=== PATIENT | female | born 1955 | race Caucasian/White ===

== ENCOUNTER → 2017-01-11 | Outpatient (CLI) | payer OTHER | LOC: BMCIMAGING 10:29 | PROVIDERS: ATTEND Family Medicine | DX: Z13.820 Encounter for screening for osteoporosis (principal); M81.0 Age-related osteoporosis without current pathological fracture ==

== ENCOUNTER → 2017-01-28 | Outpatient (CLI) | payer OTHER | LOC: BMCIMAGING 08:08 | PROVIDERS: ATTEND Family Medicine | DX: R10.9 Unspecified abdominal pain (principal) ==

== ENCOUNTER → 2017-05-27 | Outpatient (CLI) | payer OTHER | LOC: FIMAGING 07:16 | PROVIDERS: ATTEND Radiology Diagnostic Radiology | DX: I83.92 Asymptomatic varicose veins of left lower extremity (principal) ==

== ENCOUNTER 2017-06-30 07:27 | Day surgery (SDC) | payer OTHER ==
[2017-06-30] MEDS ORDERED: ALTEPLASE 2 MG VIAL IVP PRN (07:38)
[2017-06-30] MEDS ORDERED: PROTAMINE SULFATE 50 MG/5 ML VIAL IVP PRN (07:38)
[2017-06-30] MEDS ORDERED: ceFAZolin 2 GM/SWFI 2 GM/20 ML SYR IVP ONE (07:38)
[2017-06-30] MEDS ORDERED: HEPARIN 10,000 UNIT/10 ML MDV IVP PRN (07:38)
[2017-06-30] MEDS ORDERED: GLUCAGON HCL 1 MG VIAL IVP PRN (07:38)
[2017-06-30] MEDS ORDERED: ONDANSETRON 4 MG/2 ML VIAL IVP ONE (07:38)
[2017-06-30] MEDS ORDERED: NS 1,000 ML IV ONE (07:38)
[2017-06-30] MEDS ORDERED: fentaNYL 100 MCG/2 ML INJ IVP PRN (07:40)
[2017-06-30] MEDS ORDERED: NALOXONE HCL 0.4 MG/ML INJ IVP PRN (07:40)
[2017-06-30] MEDS ORDERED: MIDAZOLAM 2 MG/2 ML VIAL IVP PRN (07:40)
[2017-06-30] MEDS ORDERED: MEPERIDINE 25 MG/ML SYR IVP PRN (07:40)
[2017-06-30] MEDS ORDERED: FLUMAZENIL 0.5 MG/5 ML MDV IVP PRN (07:40)
[2017-06-30 08:09] VITALS: PULSE 65; RESP 14; TEMP 97.8
--- NOTE | 2017-06-30 08:52 | PDGENHP ---
History & Physical Chief Complaint: LLE VARAICOSE VEINS History of Present Illness: Previous treatment not worked. Repeat treatment needed Pertinent Past, Social, Family History: N/A Relevant Physical Exam: LLE varicose veins Cardiorespiratory Assessment: clear lungs; RRR
--- NOTE | 2017-06-30 08:54 | PDPROPOC ---
Sedation Plan of Care Sedation Plan of Care: vital signs stable, mental status noted, patient educated of risks, benefits, alternatives, patient can tolerate sedation ASA Classification: ASA 1 Planned drugs: fentanyl, midazolam Mallampati Score: Class 1 Mallampati Reference Image: Patient passed 3-3-2 rule?: Yes
[2017-06-30] MEDS ORDERED: LIDO/EPI 1% **for epidural** 30 ML SDV ONE ×2 (09:22→09:33)
[2017-06-30] MEDS ORDERED: SODIUM TETRADECYL SULFATE 3% 2 ML VIAL IV ONE (09:22)
[2017-06-30] MEDS ORDERED: IBUPROFEN 200 MG TAB PO ONE (11:08)
[2017-06-30] MEDS ORDERED: HYDROCODONE/APAP 5/325 TAB PO PRN (11:08)
[2017-06-30] MEDS ORDERED: ONDANSETRON 4 MG/2 ML VIAL IVP PRN (11:08)
[2017-06-30] MEDS ORDERED: ONDANSETRON DISINTEGRATING 4 MG TAB PO PRN (11:08)
--- NOTE | 2017-06-30 11:15 | PDRADPN ---
Radiology Procedure Note Date of Procedure: 06/30/17 Radiologist: Yvonne Molina Anesthesia: IV Sedation (fentanyl and versed) Pre-op Diagnosis: LLE varicosities Post-op Diagnosis: same Indication: worsening symptoms Procedure: LLE laser, phlebectomy, schlerotherapy Finding(s): please see dictated report. <10 stab phlebectomy done. GSV laser ablated. Inf/Abcess present in the surg proc area at time of surgery?: No EBL: Minimal Complications: none Specimen(s): veins
[2017-06-30 13:21] VITALS: BP 112/50; O2SAT 99
== END 2017-06-30 14:56 | disposition home or self-care (01) ==
LOC: FIMAGING 07:27
PROVIDERS: ATTEND Radiology Diagnostic Radiology
PROC: 065Q3ZZ Destruction of Left Saphenous Vein, Percutaneous Approach (ICD-10-PCS; 2017-06-30)
PROC: 06DQ3ZZ Extraction of Left Saphenous Vein, Percutaneous Approach (ICD-10-PCS; 2017-06-30)
PROC: 3E033TZ Introduction of Destructive Agent into Peripheral Vein, Percutaneous Approach (ICD-10-PCS; principal; 2017-06-30 11:25)
DX: I83.92 Asymptomatic varicose veins of left lower extremity (principal)
CPT/HCPCS: J0690; J2250; J3010

== ENCOUNTER → 2017-07-16 | Outpatient (CLI) | payer OTHER | LOC: FIMAGING 10:43 | PROVIDERS: ATTEND Radiology Diagnostic Radiology | DX: I83.92 Asymptomatic varicose veins of left lower extremity (principal) ==

== ENCOUNTER 2018-07-06 13:52 | Inpatient (IN) | payer OTHER, MEDICARE ==
[2018-07-06 14:35] LABS: PLATELET COUNT 261 10^3/uL (150-400)
[2018-07-06 14:47] LABS: INR 1.11 (0.83-1.16); PROTIME(PATIENT) 14.5 SEC (12.0-15.0)
[2018-07-06] MEDS ORDERED: ASPIRIN 81 MG CHEWABLE TAB PO ONE (15:01)
[2018-07-06] MEDS ORDERED: ASPIRIN 81 MG CHEWABLE TAB ONE (15:01)
[2018-07-06] MEDS ORDERED: NITROGLYCERIN 0.4 MG BTL SL PRN (15:01)
[2018-07-06] MEDS ORDERED: NITROGLYCERIN 0.4 MG BTL SL ONE (15:02)
[2018-07-06] MEDS ORDERED: LORazepam 2 MG/ML INJ ONE (15:15)
[2018-07-06] MEDS ORDERED: LORazepam 2 MG/ML INJ IVP ONE (15:18)
[2018-07-06] MEDS ORDERED: NS 1,000 ML IV ONE (15:18)
--- NOTE | 2018-07-06 15:23 | EDPHY ---
H & P Time Seen by Provider: 07/06/18 15:04 HPI/ROS: HPI Chest pain. 63 year old female by private vehicle with and daughter. This patient underwent a tonsillectomy yesterday. She was discharged at approximately 12 noon. Since this time she has had a sensation of a low level chest tightness and aching. She describes this as being in her mid chest. She does not have a history of coronary artery disease. She had an EKG done prior to her discharge after her surgery. She was told this was normal. She reports the pain has persisted at a low level despite taking Percocet which she has been using for her post tonsillectomy pain. She reports the pain was worse this morning and that is what prompted her to come to the emergency department. Other than her age she does not have any known cardiac risk factors. ROS: Constitutional: No fever, no chills. No weakness. Eyes: No discharge. No changes in vision. ENT: No sore throat. No nasal congestion or rhinorrhea. Respiratory: No cough. No shortness of breath. Cardiac: No chest pain, no palpitations. Gastrointestinal: No abdominal pain, no vomiting, no diarrhea. Genitourinary: No hematuria. No dysuria or increased frequency with urination. Musculoskeletal: No back pain. No neck pain. No myalgias or arthralgias. Skin: No rashes. Neurological: No headache. No focal weakness or altered sensation. Past medical history: Takes Fosamax for low bone density. Hypothyroid. Social history: Here with her and daughter. Physical Exam: General Appearance: Alert, mildly anxious but not in distress. This patient is responding to questions appropriately and in full sentences. This patient appears well-hydrated and well-nourished. Eyes: Pupils equal and round no pallor or injection. No lid edema, erythema or injection. Respiratory: There are no retractions, lungs are clear to auscultation with good air movement bilaterally. Cardiovascular: Regular rate and rhythm. No murmur. Gastrointestinal: Abdomen is soft and nontender, no masses, bowel sounds normal. No focal tenderness at McBurney's point. No Godfrey sign. Neurological: Motor sensory function is grossly intact. Cranial nerves are normal. Gait is normal. Skin: Warm and dry, no rashes. Musculoskeletal: Neck is supple and nontender. Extremities are symmetrical. All joints range without pain or impingement. Psychiatric: No agitation. No depression. Database: EKG: EKG time is 2:08 p.m.; EKG shows a narrow complex normal sinus rhythm with a ventricular rate of 63. Borderline left axis deviation noted. Slightly biphasic T-waves in V3 through V6. This does not represent a classic Wellens syndrome pattern. The AR, QRS, QT intervals are within normal limits. There are no ST-T wave changes indicative of ischemic or injury pattern. No evidence of right heart strain. Interpreted by me. Imaging: Chest x-ray AP portable; the cardiac mediastinal silhouette is unremarkable. No evidence of infiltrate or pneumothorax. No acute cardiopulmonary disease process noted. Interpreted by me. Procedures: Emergency department course: Triage vitals reviewed. She is mildly hypertensive. Vital signs are otherwise normal. She is afebrile. IV was placed. She was placed on a cardiac catheterization technologist. She was given 324 mg of chewed aspirin. EKG obtained and reviewed by myself. 3:30 p.m., the patient was re-evaluated. At this time she was complaining of mild chest pressure and aching, mid substernal. She was given 0.4 mg of sublingual nitroglycerin. 3:40 p.m., called back to the patient's bedside, patient had an apparent syncopal versus seizure event. I witnessed seizure-like activity. This lasted for about 30 sec to a minute. She then came out of it. She was mildly postictal but cleared quickly. Repeat blood pressure at this time was 85/50. She was started on IV normal saline of 500 cc bolus. 3:55 p.m., patient re-evaluated, feeling much better. No chest pain at this time. Mentation is normal. Repeat neurologic Assessment is nonfocal. She is responding to questions appropriately and in full sentences. Denies headache. 4:30 p.m., spoke with on-call hospitalist Dr. Oliver House. Case discussed in detail with her. She will see the patient in the emergency department shortly. 4:50 p.m., patient re-evaluated, resting comfortably with family in room. The patient has been seen by Dr. Oliver House. She is awaiting admission. She denies any chest pain at this time. Repeat neurologic assessment is nonfocal. Blood pressure is currently 105/49. Pulse oximetry 98% on room air. hall monitor shows a narrow complex sinus rhythm with ventricular rate of 62. Her remaining emergency department course under my care has been uneventful. She was admitted to telemetry under the care of the hospitalist service in stable condition. Differential Diagnosis: The differential diagnosis on this patient includes but is not limited to acute coronary syndrome/myocardial infarction, new onset seizure verses syncopal event. CVA, pulmonary embolism, myocarditis, pericarditis, hyponatremia, hypoglycemia unlikely. This represents a partial list of diagnoses considered. These considerations are based on history, physical exam, past history, reassessment and diagnostic testing. Smoking Status: Never smoked Constitutional: Initial Vital Signs Temperature (C) 36.6 C 07/06/18 13:55 Heart Rate 62 07/06/18 13:55 Respiratory Rate 18 07/06/18 13:55 Blood Pressure 133/58 H 07/06/18 13:55 O2 Sat (%) 100 07/06/18 13:55 O2 Delivery Mode Non-Rebreather Mask Allergies/Adverse Reactions: No Known Allergies Allergy (Unverified 07/06/18 13:54) Home Medications: Medication Instructions Recorded ALPRAZolam [Xanax 0.5 MG (*)] 0.5 mg PO TID PRN 07/06/18 Alendronate Sodium [Fosamax 70 MG 70 mg PO WISE@0700 07/06/18 (*)] Amoxicillin [Amoxicillin Susp] 500 mg PO TID 07/06/18 Hydrocodone/Acetaminophen 15 ml PO Q4H PRN 07/06/18 [Hydrocodon-Acetamin 7.5-325/15] Levothyroxine [Synthroid 75 mcg 75 mcg PO DAILY06 07/06/18 (*)] Medical Decision Making - Data Points Laboratory Results: Laboratory Results 07/06/18 14:29 07/06/18 14:29 Medications Given: Hydrocodone Bitart/Acetaminophen (Hycet Oral Liquid) 15 ml PO Q4H PRN PRN Reason: Pain, Moderate Stop: 07/16/18 17:03 Last Admin: 07/07/18 15:57 Dose: 15 ml Alprazolam (Xanax) 0.5 mg PO TID PRN PRN Reason: Anxiety Stop: 01/02/19 17:03 Last Admin: 07/07/18 01:51 Dose: 0.25 mg Amoxicillin (Amoxil 250mg/5ml) 500 mg PO TID JESSIE PRN Reason: Protocol Stop: 07/08/18 16:59 Last Admin: 07/07/18 15:56 Dose: 10 ml Atorvastatin Calcium (Lipitor) 40 mg PO DAILY JESSIE Stop: 01/03/19 11:44 Last Admin: 07/07/18 12:10 Dose: 40 mg Levothyroxine Sodium (Synthroid) 75 mcg PO DAILY06 JESSIE Stop: 01/03/19 05:59 Last Admin: 07/07/18 06:23 Dose: 75 mcg Metoprolol Tartrate (Lopressor) 12.5 mg PO BID [facility] Stop: 01/03/19 11:44 Last Admin: 07/07/18 12:10 Dose: 12.5 mg Nitroglycerin (Nitrostat) 0.4 mg SL Q5M PRN PRN Reason: Chest Pain Last Admin: 07/06/18 15:10 Dose: 0.4 mg Discontinued Medications Aspirin (Aspirin) 324 mg PO EDNOW ONE Stop: 07/06/18 15:02 Last Admin: 07/06/18 15:05 Dose: 324 mg Aspirin Buffered (Aspirin Ec) 325 mg PO ONCALL ONE Stop: 07/07/18 10:00 Last Admin: 07/07/18 11:47 Dose: Not Given Diazepam (Valium) 5 mg PO ONCALL ONE Stop: 07/07/18 10:00 Last Admin: 07/07/18 11:47 Dose: Not Given Diphenhydramine HCl (Benadryl) 25 mg PO ONCALL ONE Stop: 07/07/18 10:00 Last Admin: 07/07/18 11:47 Dose: Not Given Famotidine (Pepcid) 20 mg PO ONCALL ONE Stop: 07/07/18 10:00 Last Admin: 07/07/18 11:47 Dose: Not Given Sodium Chloride (Ns) 1,000 mls @ 3,000 mls/hr IV ONCE ONE Stop: 07/06/18 15:37 Last Admin: 07/06/18 15:19 Dose: 1,000 mls Sodium Chloride (Ns) 1,000 mls @ 75 mls/hr IV CONT JESSIE Stop: 01/02/19 17:14 Last Admin: 07/07/18 06:23 Dose: 1,000 mls Lorazepam (Ativan Injection) 2 mg IVP EDNOW ONE Stop: 07/06/18 15:19 Last Admin: 07/06/18 15:17 Dose: 2 mg Lorazepam (Ativan Injection) 0.5 - 1 mg IVP Q8HRS PRN PRN Reason: Anxiety, Unable to Take PO Stop: 01/02/19 17:01 Last Admin: 07/07/18 06:23 Dose: 1 mg Point of Care Test Results: Chemistry 07/06/18 14:29 POC Troponin I 0.27 ng/mL H ng/mL (0.00-0.08) Departure - Departure Disposition: [facility] Inpatient Acute Clinical Impression: Chest pain, Syncope, Possible seizure
[2018-07-06] MEDS ORDERED: oxyCODONE IR 5 MG TAB PO PRN (17:02)
[2018-07-06] MEDS ORDERED: ONDANSETRON 4 MG/2 ML VIAL IVP PRN (17:02)
[2018-07-06] MEDS ORDERED: ACETAMINOPHEN 325 MG TAB PO PRN (17:02)
[2018-07-06] MEDS ORDERED: HYDROmorphONE/DILAUDID 1 MG/ML INJ IVP PRN (17:02)
[2018-07-06] MEDS ORDERED: LORazepam 0.5 MG TAB PO PRN (17:02)
[2018-07-06] MEDS ORDERED: ONDANSETRON DISINTEGRATING 4 MG TAB PO PRN (17:02)
[2018-07-06] MEDS ORDERED: HYDROCODONE/APAP 5/325 TAB PO PRN (17:02)
[2018-07-06] MEDS ORDERED: PROMETHAZINE HCL 25 MG/ML INJ IVP PRN (17:02)
[2018-07-06] MEDS ORDERED: ALPRAZolam 1 MG TAB PO PRN (17:04)
[2018-07-06] MEDS ORDERED: NS 1,000 ML IV SCH (17:15)
[2018-07-06] MEDS ORDERED: ACETAMINOPHEN 650 MG/20.3 ML UDCUP PO PRN (18:30)
[2018-07-06] MEDS: AMOXICILLIN SUSP 250 MG/5 ML BTL PO SCH ×2 (18:40→22:20)
--- NOTE | 2018-07-06 18:46 | PDGENHP ---
History and Physical - Chief Complaint chest pain - History of Present Illness Patient is a 63 yo F with minimal PMH that presents with c/o chest pain present since she underwent tonsillectomy yesterday. She notes she woke up from surgery with substernal, persistent chest pain. They performed an ecg according to her report which was reassuring and so she was sent home. She notes the pain remained persistent, substernal without radiation and without exacerbating or alleviating factors other than pain meds. The pain persisted overnight until she decided finally to come to the ER today and was given a NTG. After receiving SL NTG in the ER she did have a syncopal episode where she was noted to be twitching, staring off to one direction briefly. Family was present at bedside and notes that she did not have seizure like activity but was staring one way and had some chills but they note she has chills all of the time. She did not bite her tongue or lose continence of her bowel or bladder. When she woke up she was a bit tired but otherwise felt normal. She notes she has a hx of fainting and this was very much like her usual fainting episodes. Since waking up from fainting the chest pain has not returned. She also notes that she has a lot of stress currently in her life, her brother 4 weeks ago and she has been very upset. She does not want to stay in the hospital or undergo any testing here if it can wait until after discharge. History Information - Allergies/Home Medication List Allergies/Adverse Reactions: No Known Allergies Allergy (Unverified 07/06/18 13:54) Home Medications: ALPRAZolam [Xanax 0.5 MG (*)] 0.5 mg PO TID PRN 07/06/18 [Last Taken 07/05/18] Alendronate Sodium [Fosamax 70 MG (*)] 70 mg PO WISE@0700 07/06/18 [Last Taken 12/15] Amoxicillin [Amoxicillin Susp] 500 mg PO TID 07/06/18 [Last Taken 07/06/18 12:00 ] Hydrocodone/Acetaminophen [Hydrocodon-Acetamin 7.5-325/15] 15 ml PO Q4H PRN 03/16 [Last Taken 07/06/18 09:00] Levothyroxine [Synthroid 75 mcg (*)] 75 mcg PO DAILY06 07/06/18 [Last Taken 03/16 07:30] I have personally reviewed and updated: family history, medical history, social history, surgical history - Past Medical History Additional medical history: osteopenia. hypothyroid. MVP - Surgical History Additional surgical history: tonsillectomy yesterday. breast biopsy. varicose vein ablation - Family History Additional family history: Mom at age 86 of aneurysm. Father young of unknown cause - Social History Smoking Status: Never smoked Alcohol Use: Rarely Drug Use: None Additional social history: Review of Systems Review of Systems: ROS: 10pt was reviewed & negative except for what was stated in HPI & below Physical Exam Physical Exam: Temp Pulse Resp BP Pulse Ox 37.0 C 65 17 124/52 H 99 07/06/18 18:01 07/06/18 18:01 07/06/18 18:01 07/06/18 18:01 07/06/18 18:01 O2 (L/minute) 2 Constitutional: no apparent distress, appears nourished Eyes: PERRL, anicteric sclera Ears, Nose, Mouth, Throat: moist mucous membranes, hearing normal Cardiovascular: regular rate and rhythym, no murmur, rub, or gallop, No edema Respiratory: no respiratory distress, no rales or rhonchi, clear to auscultation Gastrointestinal: normoactive bowel sounds, soft, non-tender abdomen Genitourinary: no bladder tenderness Skin: warm, normal color Musculoskeletal: full muscle strength, no muscle tenderness Neurologic: AAOx3 Psychiatric: interacting appropriately, not encephalopathic, anxious Lab Data & Imaging Review 07/06/18 14:29 07/06/18 14:29 WBC 13.58 10^3/uL (3.80-9.50) H 07/06/18 14:29 RBC 4.73 10^6/uL (4.18-5.33) 07/06/18 14:29 Hgb 14.7 g/dL (12.6-16.3) 07/06/18 14:29 Hct 42.1 % (38.0-47.0) 07/06/18 14:29 MCV 89.0 fL (81.5-99.8) 07/06/18 14:29 MCH 31.1 pg (27.9-34.1) 07/06/18 14:29 MCHC 34.9 g/dL (32.4-36.7) 07/06/18 14:29 RDW 12.8 % (11.5-15.2) 07/06/18 14:29 Plt Count 261 10^3/uL (150-400) 07/06/18 14:29 MPV 9.0 fL (8.7-11.7) 07/06/18 14:29 Neut % (Auto) 70.4 % (39.3-74.2) 07/06/18 14:29 Lymph % (Auto) 20.5 % (15.0-45.0) 07/06/18 14:29 [place] % (Auto) 7.8 % (4.5-13.0) 07/06/18 14:29 Eos % (Auto) 0.5 % (0.6-7.6) L 07/06/18 14:29 Baso % (Auto) 0.3 % (0.3-1.7) 07/06/18 14:29 Nucleat RBC Rel Count 0.0 % (0.0-0.2) 07/06/18 14:29 Absolute Neuts (auto) 9.56 10^3/uL (1.70-6.50) H 07/06/18 14:29 Absolute Lymphs (auto) 2.78 10^3/uL (1.00-3.00) 07/06/18 14:29 Absolute Monos (auto) 1.06 10^3/uL (0.30-0.80) H 07/06/18 14:29 Absolute Eos (auto) 0.07 10^3/uL (0.03-0.40) 07/06/18 14:29 Absolute Basos (auto) 0.04 10^3/uL (0.02-0.10) 07/06/18 14:29 Absolute Nucleated RBC 0.00 10^3/uL (0-0.01) 07/06/18 14:29 Immature Gran % 0.5 % (0.0-1.1) 07/06/18 14:29 Immature Gran # 0.07 10^3/uL (0.00-0.10) 07/06/18 14:29 PT 14.5 SEC (12.0-15.0) 07/06/18 14:29 INR 1.11 (0.83-1.16) 07/06/18 14:29 APTT 25.2 SEC (23.0-38.0) 07/06/18 14:29 D-Dimer < 0.27 ug/mLFEU (0.00-0.50) 07/06/18 14:29 Sodium 138 mEq/L (135-145) 07/06/18 14:29 Potassium 3.4 mEq/L (3.3-5.0) 07/06/18 14:29 Chloride 106 mEq/L (97-110) 07/06/18 14: Carbon Dioxide 22 mEq/l (22-31) 07/06/18 14: Anion Gap 10 mEq/L (6-14) 07/06/18 14:29 BUN 10 mg/dL (7-23) 07/06/18 14:29 Creatinine 0.8 mg/dL (0.6-1.0) 07/06/18 14: Estimated GFR > 60 07/06/18 14:29 Glucose 103 mg/dL (70-100) H 07/06/18 14: Calcium 10.4 mg/dL (8.5-10.4) 07/06/18 14:29 POC Troponin I 0.27 ng/mL (0.00-0.08) H 07/06/18 14:29 Troponin I 0.244 ng/mL (0.000-0.034) H 07/06/18 14:29 Visualized and Interpreted Chest x-ray results: Yes Chest X-Ray results: no infiltrate Visualized and Interpreted EKG results: Yes EKG Interpretation: Positive for: normal sinsus rhythm Assessment & Plan Assessment: Chest pain (Acute) 63 yo F with PMH of hypothyroidism and MVP presenting with chest pain and syncope post NTG # chest pain: with a heart score of 3 and atypical story without significant risk factors but an indeterminate initial troponin. D dimer negative and not hypoxic making PE unlikely. Will trend trops, will monitor serial ecg and watch on tele. Patient is asking that if the remainder of her workup be unremarkable that further testing be deferred until later in the week given her recent surgery. Will ask cardiology to consult in am, if trops trend down, OP stress test would be reasonable. # syncope: occurring after receiving nitro in the ER and along with BP dropping to systolic of 80, suspect an orthostatic or vagal type syncope event in a patient with hx of syncope. She does note a hx of mitral valve prolapse so will get echo in am. # recent tonsillectomy: with some continued pain being managed with oral opiates # hypothyroid: continue lt4 # osteopenia: on fosamax # anxiety: with continuous benzo use and dependence, will continue home meds # observation status Patient new to my care. Old records reviewed and summarized as above. Care plan reviewed with ER doctor as above. Further hx obtained from family present at bedside.
[2018-07-06] MEDS: LORazepam 2 MG/ML INJ IVP PRN (22:20)
[2018-07-07] MEDS: HYDROCOD/APAP 7.5/325 IN 15ML UDCUP PO PRN ×5 (01:38→21:24)
[2018-07-07] MEDS: LEVOTHYROXINE 75 MCG TAB PO SCH (06:23)
[2018-07-07] MEDS: LORazepam 2 MG/ML INJ IVP PRN (06:23)
[2018-07-07] MEDS: AMOXICILLIN SUSP 250 MG/5 ML BTL PO SCH ×3 (08:21→21:24)
[2018-07-07] MEDS ORDERED: FAMOTIDINE 20 MG TAB PO ONE (09:59)
[2018-07-07] MEDS ORDERED: DIAZEPAM 5 MG TAB PO ONE (09:59)
[2018-07-07] MEDS ORDERED: ASPIRIN EC 325 MG TAB PO ONE (09:59)
[2018-07-07] MEDS ORDERED: diphenhydrAMINE 25 MG CAP PO ONE (09:59)
[2018-07-07] MEDS: METOPROLOL TARTRATE 25 MG TAB PO SCH ×2 (12:10→21:26)
[2018-07-07] MEDS: ATORVASTATIN CALCIUM 40 MG TAB PO SCH (12:10)
--- NOTE | 2018-07-07 12:21 | ASMTCMCOM ---
CM Note CM Note Notes: Pts case discussed in tx rounds. Pt is a 63 y/o female admitted for chest pain. Pt underwent a tonsillectomy yesterday. Pt is scheduled for a cath today. Pt will most likely d/c independent when medically stable. No therapies ordered at this time. CM available for changes. Plan: Independent Date Signed: 07/07/2018 12:20 PM Electronically Signed By:KHANG Gómez
--- NOTE | 2018-07-07 12:57 | GCON ---
CARDIOLOGY CONSULTATION REFERRING PHYSICIAN: Jeimy Bruno MD SUPERVISING TRAVERSE ROD ASSEMBLER: Dr. Hart INDICATION FOR CARDIOLOGY CONSULTATION: Chest pressure, elevated troponins. HISTORY OF PRESENT ILLNESS: The patient is a 63-year-old female who reports no significant cardiac history. She has recently underwent tonsillectomy on Wednesday of this week performed by Dr. Martínez. Patient reporting post-procedure , she did have some mild midsternal chest pressure, stating that she did mention this to the PACU staff, an electrocardiogram was done at that time, and she was told everything was "fine." At the time of her discharge, she had no further episodes of chest pain. She reports once coming home, she did have bouts of chest pressure, coming on spontaneously, reporting no significant exertion. Lasting up to a few hours. She reports no associated symptoms of shortness of breath, nausea, or diaphoresis. Did not feel that the symptoms were positional. After dealing with this a day, yesterday she did call Dr. Martínez's office who told her to come to the emergency department for further evaluation. Upon arrival, she continued to have persistent chest pressure, she was evaluated by the emergency department. Electrocardiogram was initially done showing sinus rhythm, RSR prime noted in V2, incomplete right bundle branch block, borderline left axis deviation with early R-wave progression in anterior leads. No significant ST or T-wave abnormalities. Laboratory studies drawn showing a mild troponin level of 0.024. Her D-dimer was less than 0.27. She was given a sublingual nitroglycerin; soon afterwards, she became very lightheaded, reporting as if she had tunnel vision, and then passed out. Per her , who was at her bedside during this experience, she was noted to have some mild twitching, but patient was negative for incontinence of bowel or bladder, and reports no biting of the tongue. Help was summoned, and she was laid done immediately, and regained consciousness fairly quickly. She noted at that time to have a systolic blood pressure of less than 80. Patient does report after nitroglycerin, she has had no further episodes of chest pressure. She was admitted to the PCU for overnight observation, in which she reports she has been pain-free. They have been trending her troponins, and this morning's troponin was 0.178. Patient reports of recent tonsillectomy due to ongoing cyst, but reports she has had no recent fevers, chills, or night sweats. She reports no bleeding issues post-tonsillectomy. Denies any history of orthopnea, PND, edema, lightheadedness, near-syncope. She does report previous syncopal event with blood drawn multiple years ago, which she reported was vasovagal. She reports no fevers, chills, or night sweats. Denies of any symptoms suggesting of infection. She reported prior to her surgery last week, she was exercising on a routine basis without symptoms. She has significant cardiac risk factors of age. PAST MEDICAL HISTORY: Includes osteopenia, hypothyroidism, and she was noted to have mitral valve prolapse for greater than 20 years. She is not followed by Cardiology regularly. SURGICAL HISTORY,: Tonsillectomy done on Wednesday, breast biopsy, varicose vein ablation in the left leg. FAMILY HISTORY: Patient reports mom of a femoral aneurysm at age 86, father young of unknown causes, but she denies of any significant family history of coronary artery disease. SOCIAL HISTORY: She is a retired nurse. She reports she has never smoked. She is . She occasionally uses alcohol. Denies of any illicit drug use. ALLERGIES: She has no known drug allergies. HOME MEDICATIONS: Include Xanax 0.5 mg p.o. t.i.d. p.r.n., amoxicillin 500 mg p.o. t.i.d., hydrocodone/acetaminophen 7.5/325 mg 15 mL p.o. q.4 hours p.r.n., Synthroid 75 mcg p.o. daily, Fosamax 70 mg p.o. every Wednesday. REVIEW OF SYSTEMS: A 10-point review of systems done on this patient all negative, except as mentioned above. PHYSICAL EXAMINATION: GENERAL APPEARANCE: Thin, well-groomed female. She is alert and oriented to person, place, time, and situation. She appears to be in no acute distress at this time. VITAL SIGNS: Current: Blood pressure of 131/56, heart rate of 65 sinus rhythm on the monitor, respirations 14, saturating 95% on room air, temperature 36.6 degrees Celsius. HEENT: Head is normocephalic. Lips and tongue are pink and moist with no signs of cyanosis. Conjunctivae pink. NECK: Trachea is midline. +2 carotid pulses bilateral. No auscultated bruits. No jugular vein distention. RESPIRATORY: Lungs are clear to auscultation. No rhonchi, rales, or wheezes. No accessory muscle use. No intercostal muscle retraction noted. CARDIAC: Regular rate, regular rhythm, S1, S2. No S3, S4, gallops, rubs, or murmurs noted. ABDOMEN: Soft, nontender. Bowel sounds x4 quadrants. No organomegaly. No palpable masses. SKIN: [place], warm, dry. No cyanosis. No clubbing. No peripheral edema. VASCULAR: +2 carotids bilateral, +2 radials bilateral, +1 dorsal pedal and posterior tibial pulses bilateral. LABORATORY STUDIES: Drawn on admission showed WBC of 13.58, hemoglobin 14.7, hematocrit of 42.1, platelet count 261. INR 1.1. D-dimer less than 0.27. Sodium 138, potassium 3.4, chloride 106, CO2 22, BUN 10, creatinine 0.8, glucose 103, calcium 10.4. Noted on admission troponin of 0.027, done at 2:30 afternoon troponin of 0.024, done at 3:30 this morning troponin level of 0.178. DIAGNOSTIC DATA: Electrocardiogram in the ER as mentioned above. Chest x-ray showing no acute cardiopulmonary process. Preliminary of echocardiogram showing mild mitral valve prolapse. No LV wall motion abnormality. EF within normal limits. ASSESSMENT/PLAN: 1. Chest pressure: Patient reporting ongoing chest pressure. Since undergoing surgery on Wednesday. Noted to have mildly elevated troponin peaking at 0.27. Electrocardiogram showed no acute ischemia at this time. Echocardiogram preliminary showing no wall motion abnormality on left ventricle. Both Dr. Hart and I have discussed potentially taking patient to the cardiac catheterization lab with her ENT surgeon, Dr. Martínez who feels that the patient is at extreme risk on antiplatelet therapy of bleeding, which he may not be able to control, considering even potential life-threatening. At this time due to her being asymptomatic, we have opted for medical management, in which we will place her on beta-blockers of metoprolol tartrate, will start her on atorvastatin. We will hold off on starting her on aspirin therapy per Dr. Martínez's request of no anti-platelet therapy. We will plan on watching her for 1 more night in the hospital, trending her troponins. If everything continues to work down, then we will potentially discharge her tomorrow, with plans of having her coming in after 10 days in which her bleeding risks will be significantly reduced per Dr. Martínez, with consideration of a heart catheterization to be done at that time. If her symptoms change, we could always transition her to an emergent catheterization. 2. Syncopal event: The patient reporting syncopal event after nitroglycerin, with low systolic blood pressures, patient with history of vasovagal syncope in the past after needlestick. More than likely, her syncopal event was caused by dehydration from her recent surgery and vasodilation from the nitroglycerin. We will continue to monitor. Plan on checking orthostatic blood pressures. Thank you for this consultation. We will be glad to follow along with you. /[id number]/MODL MTDD
--- NOTE | 2018-07-07 15:14 | HOSPPROG ---
Hospitalist Progress Note Assessment/Plan: * Non-STEMI -now CP free -high risk cath given recent tonsillectomy -plan for med mgmt short term - bring back for cardiac cath 10 days -add metoprolol and statin -no anti-platelet per ENT request * s/p tonsillectomy -high risk for bleed in immediate post-op period -per ENT delay cath and blood thinners if possible -soft diet * Syncope due to NTG induced hypotension -no recurrence - continue to monitor BP * Anxiety -Xanax prn per home dosing Subjective: No more CP Objective: Vital Signs Temp Pulse Resp BP Pulse Ox 36.7 C 62 14 126/62 H 96 07/07/18 11:22 07/07/18 12:49 07/07/18 11:22 07/07/18 12:49 07/07/18 11:22 07/06/18 07/07/18 07/08/18 05:59 05:59 05:59 Intake Total 1400 910 Output Total 200 Balance 1200 910 PT 14.5 SEC (12.0-15.0) 07/06/18 14:29 INR 1.11 (0.83-1.16) 07/06/18 14:29 EKG viewed, my personal interpretation is - NSR CXR - negative case discussed at length with cardiology Dr. Hart and Kenny Sebastian Laboratory Tests 07/06/18 07/06/18 07/07/18 14:29 14:29 03:03 D-Dimer < 0.27 Troponin I 0.244 H 0.178 H - Physical Exam Constitutional: no apparent distress, appears nourished, not in pain Cardiovascular: regular rate and rhythym, no murmur, rub, or gallop Respiratory: no respiratory distress, no rales or rhonchi, clear to auscultation Gastrointestinal: normoactive bowel sounds, soft, non-tender abdomen, no palpable masses Skin: no rashes or abrasions, no fluctuance, no induration Neurologic: AAOx3, sensation intact bilaterally Psychiatric: interacting appropriately, not anxious, not encephalopathic, thought process linear ICD10 Worksheet Patient Problems: Problems Problem Status Onset Chest pain Acute New onset seizure Acute
--- NOTE | 2018-07-07 16:09 | ECHO ---
[email or web address] [address] [address] Main: [phone] Fax: Transthoracic Echocardiogram Name: GUSTABO RAM MR#: [id number] Study Date: 07/07/2018 Study Time: 09:11 AM Date of : 1955 Age: 63 year(s) Height: 162.6 cm (64 in.) Weight: 49.9 kg (110 lb.) BSA: 1.52 m2 Gender: Female Examination: Echo Indication: Cardiac: syncope, hx of mitral valve prolapse Image Quality: Adequate Contrast: Requested by: Oliver House BP: 131 mmHg/56 mmHg Heart Rate: Rhythm: Indication: Cardiac: syncope, hx of mitral valve prolapse Procedure Staff Quality Control Analyst: Bette Leblanc RD Reading Physician: Jose L Pettit MD Requesting Provider: Conclusions: Normal size left ventricle. Normal global systolic LV function. Mild mitral valve regurgitation is present. There is mild mitral valve prolapse. The aortic valve is tri-leaflet. Mild aortic valve regurgitation is present. No aortic valve stenosis is present. Right ventricular systolic pressure measures 37mmHg. Normal size ascending aorta measuring 2.9 cm. Trivial pericardial effusion. No old studies for comparison. Measurements: Chambers Valvular Assessment AV/MV Valvular Assessment TV/PV Normal Normal Normal Name Value Range Name Value Range Name Value Range Ao Yanique (2D): 2.8 cm (1.4 cm-2.6 AV Vmax: 1.37 m/s (1 m/s-1.7 TR Vmax: 2.85 mm/s ( - ) cm) m/s) TR PGmax: 32 mmHg ( - ) IVSd (2D): 0.7 cm (0.6 cm-1.1 AV maxP mmHg ( - ) syst. PAP: 37 mmHg ( - ) cm) AV meanP mmHg ( - ) PV Vmax: 0.65 m/s (0.6 m/s-0.9 LVDd (2D): 4.6 cm (3.9 cm-5.3 LIA (VTI): 2.0 cm ( - ) m/s) cm) MV E Vmax: 0.78 m/s ( - ) PV PGmax: 2 mmHg ( - ) LVDs (2D): 2.9 cm (2.1 cm-4 MV A Vmax: 0.54 m/s ( - ) cm) MV E/A: 1.44 ( - ) LVPWd (2D): 0.8 cm ( - ) MV PHT: 0.083 s ( - ) LVOTd 1.9 cm 1.9 cm mm MVA (PHT): 2.7 s ( - ) LVEF (BP): 56 % (>=55 %) RVDd(2D): 2.4 cm (1.9 cm-3.8 cmmm) Patient: GUSTABO RAM Study Date: 07/07/2018 Page 1 of 2 09:11 AM Continued Measurements: Chambers Valvular Assessment AV/MV Valvular Assessment TV/PV Name Value Name Value Name Value LADs: 2.9 cm MV DecTime: 264 m/s CVP (est.): 5 mmHg LADs Lon.5 cm MV E' Septal: 0.10 m/s LA Area: 14.1 cm2 MV E/E' Septal: 8.20 LA Volume: 36 ml MV E/E' Lateral: 8.20 LA Volume Index: 23.7 ml/m2 RA Area: 14.3 cm2 Additional Vessels Name Value Ao Ascendin.9 cm Inferior Vena Cava: 2.8 cm Findings: Left Ventricle: Normal size left ventricle. No LV hypertrophy. Normal global systolic LV function. EF is 56 %. No regional wall motion abnormality. Normal diastolic LV function. Right Ventricle: Normal size right ventricle. Normal RV function. Left Atrium: The left atrium is normal in size. Right Atrium: The right atrium is normal in size. Mitral Valve: Mild mitral valve regurgitation is present. There is mild mitral valve prolapse. Aortic Valve: The aortic valve is tri-leaflet. Mild aortic valve regurgitation is present. No aortic valve stenosis is present. Tricuspid Valve: The tricuspid valve is normal in appearance and function. Moderate tricuspid regurgitation is present. The pulmonary artery pressure is normal. Right ventricular systolic pressure measures 37mmHg. Pulmonic Valve: The pulmonic valve is normal in appearance and function. Trivial pulmonic valve regurgitation. Aorta: The aorta is normal. Normal size aortic root measuring 2.8 cm. Normal size ascending aorta measuring 2.9 cm. IVC: The IVC is dilated. Pericardium: Trivial pericardial effusion. No pleural effusion. (No Signature Object) Patient: GUSTABO RAM Study Date: 07/07/2018 Page 2 of 2 09:11 AM [id number]
--- NOTE | 2018-07-07 20:51 | CPEKG ---
Test Reason : OPEN Blood Pressure : / mmHG Vent. Rate : 066 BPM Atrial Rate : 067 BPM P-R Int : 147 ms QRS Dur : 099 ms QT Int : 434 ms P-R-T Axes : 073 -07 013 degrees QTc Int : [address] depression possible ischemia Confirmed by Dilip Woods ([id number]) on 07/07/2018 8:50:39 PM Referred By: Confirmed By:Dilip Woods
[2018-07-08] MEDS: HYDROCOD/APAP 7.5/325 IN 15ML UDCUP PO PRN ×3 (01:23→11:03)
[2018-07-08 04:26] LABS: PLATELET COUNT 225 10^3/uL (150-400)
[2018-07-08] MEDS: LEVOTHYROXINE 75 MCG TAB PO SCH (07:06)
[2018-07-08 07:40] VITALS: BP 145/67
[2018-07-08] MEDS: ATORVASTATIN CALCIUM 40 MG TAB PO SCH (07:59)
[2018-07-08] MEDS: METOPROLOL TARTRATE 25 MG TAB PO SCH (08:03)
[2018-07-08] MEDS: AMOXICILLIN SUSP 250 MG/5 ML BTL PO SCH (09:17)
--- NOTE | 2018-07-08 10:07 | PDCARPN ---
Cardiology Progress Note Assessment/Plan: Assessment: 1. NSTEMI 2. Chest pressure (resolved) 3. s/p Tonsilectomy 07/05/[address] Martínez Plan: -No aspirin in setting of Tonsilectomy and concern for bleeding risk -No beta marilou secondary to symptomatic bradycardia in the 40's -Atorvastatin 20 mg daily -Pt has been instructed to limit activity and return to hospital if she develops chest pressure -Follow up on Wednesday, July 11, 2018 at 3:15 PM at [facility] -Plan for Left Heart Cath at least 10 days post Tonsilectomy in order to reduce bleeding risk as outlined above per conversation with her ENT Dr. Martínez. 07/08/18 10:11 Subjective: Alfreda is doing well this morning. No chest pressure since admission. No complaints of sob, nausea or vomitting. No events on telemetry. Note bradycardia in the 40's coupled with fatigue with metoprolol. Troponin continues to trend down from 0.244 to 0.178 to 0.090 to 0.069 this morning. ECG this AM demonstrates NSR at 61 bpm with incomplete RBBB and non specific T wave changes isolated to AVF. In the absence of chest pressure with troponin trending down and no ischemic changes on ECG, Alfreda is OK to go home with Cardiology follow up next week on July 11 at 3:15. I spent 30 min reviewing plan with patient and family. Pt is aware to return to [facility] with onset of chest pressure. Planning to delay LHC in the setting of Tonsilectomy on Jul 05, 2018 and concern for possible life threatening bleeding per Dr. Martínez (ENT). Reviewed/Discussed With: family, hospitalist, multidisciplinary team Time Spent with Patient: greater than 25 minutes Time Spent with Patient: Greater than 25 minutes spent on this patients care, greater than 50% of time spent counseling, educating, and coordinating care regarding the above mentioned plan. Objective: Vital Signs (8 Hrs) Temp Pulse Resp BP Pulse Ox 07/08/18 08:03 52 L 07/08/18 07:40 36.7 C 60 14 145/67 H 96 07/08/18 03:44 36.8 C 56 L 14 127/51 H 97 Intake/Output (24 Hrs) 07/07/18 07/08/18 07/09/18 05:59 05:59 05:59 Intake Total 1400 1310 Output Total 200 Balance 1200 1310 Intake: Oral (ml) 400 400 IV Infused (ml) 1000 910 Ns 1,000 ml @ 75 mls/hr 910 IV CONT JESSIE Rx#: [id number] Output: Urine (ml) 200 Toilet 200 Other: Weight 49.9 kg Number of Voids Toilet 4 Number of Stools Toilet 1 Result Diagrams: 07/08/18 03:18 07/06/18 14:29 Cardiac Labs: Cardiac Lab Results (72 Hrs) 07/08/18 07/07/18 07/07/18 03:18 14:54 03:03 Troponin I 0.069 H 0.090 H 0.178 H - Physical Exam Ears, Nose, Mouth, Throat: moist mucous membranes Cardiovascular: regular rate and rhythm, no murmurs, no rubs, no gallops Respiratory: clear to auscultate bilat Neurologic: AAOx3, CN II-XII grossly intact Psychiatric: cooperative, interactive, following commands ICD10 Worksheet Patient Problems: Problems Problem Status Onset Chest pain Acute Syncope Acute
--- NOTE | 2018-07-08 11:15 | PDMN ---
Medical Necessity Medical necessity: Change to IP, as of 07/07/18, per MD & MCG M-230; los >2 mn for ongoing management of NSTEMI s/p tonsillectomy; requiring further monitoring & med management
--- NOTE | 2018-07-08 11:31 | ASMTCMCOM ---
CM Note CM Note Notes: Pts case discussed in tx rounds. Pt is being discharged today. PT worked w/ pt this AM. Pt does not have any needs. CM available for changes. Plan: Independent Date Signed: 07/08/2018 11:31 AM Electronically Signed By:KHANG Gómez
--- NOTE | 2018-07-08 11:32 | ASMTLACE ---
LACE Length of stay for Answers: 2 days current admission Acuity / Level of Answers: Yes Care: Did the patient have an inpatient admission? Comorbidities - select Answers: Other Notes: Hypothyroid all that apply # of Emergency department Answers: 1-2 visits in the last 6 months Social determinants Answers: Mental health diagnosis (anxiety, depression, pers onality disorders, etc.) Score: 10 Date Signed: 07/08/2018 11:31 AM Electronically Signed By:KHANG Gómez
--- NOTE | 2018-07-08 18:40 | GDS ---
DISCHARGE DIAGNOSES: 1. Fmw-YC-khgjdzglj myocardial infarction. 2. Recent tonsillectomy. 3. Syncope due to nitroglycerin induced hypotension. 4. Anxiety. HISTORY: The patient is a 63-year-old female, who underwent a tonsillectomy on the day prior to admi ssion. She woke up from surgery and had acute onset of severe chest pain. EKG at that time was nega tive and she was discharged home. Later that day, she had recurrence of chest pain. Returned to the emergency room, at this time was found to have a non ST-elevation MS with a troponin elevation altho ugh mildly elevated. Cardiology was consulted. They consulted with Dr. Martínez of ENT who did her to nsillectomy. The risk of bleeding post tonsillectomy is extraordinarily high and it was not recommen ded that she receive any anti-platelet or any blood thinners in the immediate postsurgical period. Jerad vallejo was for medical management in the short term and to bring her back for cardiac catheterization in 10 days. Per ENT, no anti-platelet, therefore no aspirin is prescribed. However she will discharge on a statin drug. We attempted beta blockade however she became profoundly bradycardic, so has been discontinued. She is recommended to take it very easy for the next 10 days with no strenuous activi ty and she should return to the emergency room urgently for any recurrence of chest pain. DISCHARGE MEDICATIONS: Please see computer record for full detailed list. New medications: Lipitor 40 mg p.o. daily. ADDITIONAL DISCHARGE INSTRUCTIONS: 1. Cardiac catheterization with Dr. Hart in approximately 10 days. 2. Followup appointment scheduled at [facility], July 11 at 3:15. 3. Return to emergency room for recurrence of chest pain. 4. No strenuous activities until cardiac catheterization complete. 5. Greater than 30 minutes' time was spent arranging this discharge. Patient seen and examined by me on the day of discharge. /[id number]/MODL
--- NOTE | 2018-07-09 04:43 | CPEKG ---
Test Reason : OPEN Blood Pressure : / mmHG Vent. Rate : 063 BPM Atrial Rate : 063 BPM P-R Int : 132 ms QRS Dur : 102 ms QT Int : 431 ms P-R-T Axes : 011 -21 034 degrees QTc Int : 442 ms Sinus rhythm Borderline left axis deviation Abnormal R-wave progression, early transition Confirmed by Clem Rico ([id number]) on 07/09/2018 4:43:28 AM Referred By: Confirmed By:Clem Rico
--- NOTE | 2018-07-09 08:03 | CPEKG ---
Test Reason : OPEN Blood Pressure : / mmHG Vent. Rate : 061 BPM Atrial Rate : 062 BPM P-R Int : 131 ms QRS Dur : 100 ms QT Int : 421 ms P-R-T Axes : 028 032 063 degrees QTc Int : 424 ms Sinus rhythm Atrial premature complex Nonspecific ST and T wave abnormality Incomplete right bundle branch block Confirmed by Dilip Woods ([id number]) on 07/09/2018 8:03:43 AM Referred By: Confirmed By:Dilip Woods
== END 2018-07-08 11:15 | disposition home or self-care (01) | DRG 282 ==
LOC: INTOOBSV 15:48 → F2W 17:55 → OBSVTOIN 07-07 13:58
PROVIDERS: ADMIT Internal Medicine; ATTEND Internal Medicine
DX: I21.4 Non-ST elevation (NSTEMI) myocardial infarction (principal); R55 Syncope and collapse; I95.2 Hypotension due to drugs; T46.3X5A Adverse effect of coronary vasodilators, initial encounter; E03.9 Hypothyroidism, unspecified; I34.1 Nonrheumatic mitral (valve) prolapse; F41.9 Anxiety disorder, unspecified; Z98.890 Other specified postprocedural states
CPT/HCPCS: 84484-PO; 96374; 97161-GP; G0378; G8978-GP-CH; G8979-GP-CH; G8980-GP-CH; J2060

== ENCOUNTER → 2018-09-28 | Outpatient (CLI) | payer OTHER, MEDICARE | LOC: BHFA 09:30 | PROVIDERS: ATTEND Internal Medicine Cardiovascular Disease | DX: R55 Syncope and collapse (principal); I21.4 Non-ST elevation (NSTEMI) myocardial infarction | CPT/HCPCS: 78452; 93017; A9500 ==

== ENCOUNTER → 2018-10-14 | Outpatient (CLI) | payer OTHER, MEDICARE ==
[~2018-10-14] MED LIST: IOHEXOL 300 mgI/ML (OMNIPAQUE) 150 ML BTL IV ONE
== END ==
LOC: FIMAGING 13:56
PROVIDERS: ATTEND Internal Medicine Cardiovascular Disease
DX: R91.8 Other nonspecific abnormal finding of lung field (principal); I21.4 Non-ST elevation (NSTEMI) myocardial infarction; R94.39 Abnormal result of other cardiovascular function study
CPT/HCPCS: 71260; Q9967; 82565-PO